=== PATIENT | female | born 1985 | race Asian ===

== ENCOUNTER → 2016-06-12 | Outpatient (CLI) | payer OTHER, MEDICAID ==
[~2016-06-12] MED LIST: PREN-115 PO
--- OUTSIDE RECORDS SUMMARY | 2016-06-12 09:36 | XMS REPORT ---
Author Author KENRICK STEEL Organization [employer] Address Unknown Phone Unavailable Care Team Providers Care Equity Director Name Role Phone KENRICK STEEL CP Unavailable Allergies, Adverse Reactions, Alerts Substance Reaction Event Type N.K.D.A. Info Not Available Non Drug Allergy Problems Problem Type Condition Code Onset Dates Condition Status Assessment Vaginal candidiasis B37.3 Active Assessment Routine health maintenance Z00.00 Active Assessment Family history of hypertension Z82.49 Active Problem Family history of hypertension Z82.49 Active Problem Vaginal candidiasis B37.3 Active Problem Routine health maintenance Z00.00 Active Problem Encounter for screening for malignant neoplasm of cervix Z12.4 Active Problem Screen for STD (sexually transmitted disease) Z11.3 Active Problem Encounter for contraceptive management, unspecified Z30.9 Active Problem Encounter for well woman exam with routine gynecological exam Z01.419 Active Medications Medication Code System Code Instructions Start Date End Date Status Dosage Sprintec 28 [facility] [address]-96 0.25-35 MG-MCG Orally Once a day 1 tablet Diflucan [facility] [address]-31 150 MG Orally Once a day Dec 05, 2015 Dec 07, 2015 1 tablet today and repeat in 4 days Procedures Procedure Coding System Code Date ASSAY THYROID STIM HORMONE CPT-4 16290 Dec 05, 2015 GLYCATED HEMOGLOBIN TEST CPT-4 76987 Dec 05, 2015 Office Visit, Est Pt., Level 3 CPT-4 18712 Dec 05, 2015 LIPID PANEL CPT-4 31369 Dec 05, 2015 COMPLETE CBC W/AUTO DIFF WBC CPT-4 93388 Dec 05, 2015 VENIPUNCT, ROUTINE* CPT-4 36378 Dec 05, 2015 COMPREHEN METABOLIC PANEL CPT-4 45679 Dec 05, 2015 Vital Signs Date/Time: Dec 05, 2015 Cardiac Monitoring Heart Rate 60 bpm Weight 119.8 lbs Height 62.5 in BMI 21.56 Index Blood Pressure Diastolic 62 mmHg Blood Pressure Systolic 108 mmHg Results No Known Results Summary Purpose [employer] Submission
--- NOTE | 2016-06-12 18:04 | Diagnostic Imaging Report ---
OB ultrasound. INDICATION: Late care. There are no prior studies available for comparison. There is a single live fetus in transverse presentation. heart motion is noted and a rate of 139 bpm is recorded. There are no abnormalities identified. The growth parameters are fairly uniform. The growth parameters are as follows: BPD: 4.51, 19 weeks 5 days. Head circumference: 16.09, 19 weeks 0 days. Abdominal circumference: 13.54, 19 weeks 0 days. Femur length: 2.75, 18 weeks 3 days. Estimated weight is 256 g +/- 37 g. LMP percentile is 40%. Sonographic EDC is 11/05/2016. LMP EDC is 11/07/2016. The placenta is posterior and there is no previa. The amniotic fluid volume is within normal limits. The cervix is measured and is estimated to be 4.1 cm. IMPRESSION: 1. There is single live fetus of approximately 19 weeks 1 day gestation +/- 1.5 weeks. The EDC is November 05, 2016. 2. There are no abnormalities identified. 3. The growth parameters are fairly uniform. Dictated by: Dictated on workstation # [id number]
== END ==
LOC: RAD 09:33
PROVIDERS: ATTEND Family Medicine
DX: Z34.82 Encounter for supervision of other normal pregnancy, second trimester (principal); Z3A.19 19 weeks gestation of pregnancy
CPT/HCPCS: 76805

== ENCOUNTER 2016-10-31 05:58 | Inpatient (IN) | payer OTHER, MEDICAID ==
[~2016-10-31] VITALS: Ht 157.5 cm; Wt 66.1 kg
[2016-10-31] VITALS (58 sets, daily range): BP systolic 102–155; BP diastolic 50–96
[2016-10-31] MEDS ORDERED: D5 LR IV SOLUTION 1,000 ML IV SCH (06:04)
[2016-10-31] MEDS ORDERED: MINERAL OIL CONCENTRATE 99.9% 15 ML UDC TOP PRN (06:15)
[2016-10-31 06:31] LABS: BASOPHILS % (AUTO) 0 % (0-10); EOSINOPHILS # (AUTO) 0.1 10^3/uL (0.0-0.3); EOSINOPHILS % (AUTO) 1 % (0-10); LYMPHOCYTES # (AUTO) 1.4 X 10^3 (1.0-4.0); LYMPHOCYTES % (AUTO) 17 % (12-44); MEAN CORPUSCULAR HEMOGLOBIN 28 PG (25-34); MEAN CORPUSCULAR HGB CONC 32 G/DL (32-36); MEAN CORPUSCULAR VOLUME 86 FL (80-99); MEAN PLATELET VOLUME 8.8 FL (7.4-10.4); MONOCYTES % (AUTO) 12 % (0-12); NEUTROPHILS # (AUTO) 5.8 X 10^3 (1.8-7.8); NEUTROPHILS % (AUTO) 70 % (42-75); PLATELET COUNT 258 10^3/uL (130-400); RED BLOOD COUNT 3.56 10^6/uL (4.35-5.85); RED CELL DISTRIBUTION WIDTH 12.9 % (10.0-14.5); WHITE BLOOD COUNT 8.3 10^3/uL (4.3-11.0)
[2016-10-31] MEDS ORDERED: OXYTOCIN/NORMAL SALINE 500 ML IV SCH ×2 (07:34→14:07)
[2016-10-31] MEDS ORDERED: SUFENTA 0.6MCG/ML BUPIVA 0.125 100 ML ONE (08:15)
--- NOTE | 2016-10-31 08:22 | History & Physical-OB ---
OB - Chief Complaint & HPI Date/Time Date of Admission: Date of Admission: Oct 31, 2016 at 5:59 am Time Seen by Provider: 08:18 Chief Complaint/History OB-Reason for Admission/Chief: Induction of Labor Hx : 3 Hx Para: 2 Expected Date of Delivery: Nov 07, 2016 Gestational Age in Weeks: 39 Gestational Age in Days: 0 History of Labs B+, antibody neg, RI, GC/Chlamydia neg. HIV/HepB/RPR NR. Glucola normal. GBS neg. Allergies and Home Medications Allergies Coded Allergies: No Known Drug Allergies (Unverified , 11/10/12) Home Medications Vit #108/Iron/Fa 1 Each Tablet, 1 EACH PO DAILY, (Reported) OB - History Hx of Present Care: Yes Ultrasounds: Normal mid trimester US Obstetrical Complications: None Medical Complications: None Information Induced Hypertension: No Maternal Gestational Diabetes: No Hemorrhage: No Obstetrical History Hx : 3 Hx Para: 2 Hx # Term Pregnancies: 2 Hx # Pregnancies: 0 Number of Living Children: 2 Hx Termination: No Hx Multiple Gestation: No Hx Ectopic : No Hx Stillbirth: No Hx Complication: No Hx Induced Hypertens: No Hx Maternal Gestational Diabet: No Hx Hemorrhage: No Delivery History Hx Dystocia: No Hx Forceps Assisted Delivery: No Hx Vacuum Extraction Assisted: No Hx Placenta Abnormality: No Hx Distress: No Hx Large For Gestational Age I: Yes Hx Small for Gestational Age I: No Hx Section: No Hx Vaginal Delivery Post C-Sec: No Hx Blood Disorders: No Adverse Rxn to Tranfusion: No Patient Past Medical History PMHx: None Social History/Family History HIV/AIDS: No Recent Infectious Disease Expo: No Sexually Transmitted Disease: No Alcohol Use: Denies Use Recreational Drug Use: No Smoking Cessation: Never smoker Immunizations Tetanus Booster (TDap): Less than 5yrs Rubella: immune RPR/VDRL: Negative GBS Status: Negative HBsAG: Negative OB - Admission Exam Physical Exam Date Seen by Provider: Oct 31, 2016 Time Seen by Provider: 08:20 Vitals: Vital Signs 10/31/16 06:03 Temp 98.0 Pulse 71 Resp 18 B/P (MAP) 127/64 HEENT: NCAT Abdomen: Non tender Extremities: Normal Cervical Dilatation: 5cm Effacement: Other (40) Station: -3 Membranes: Intact Heart Rate: 130's Accelerations: Accelerations Present Decelerations: No Decelerations Short Term Variability: Present Machinist Class B Variability: Average (6-25) Contractions on Admission: None Lopez Scoring Tool (Modified) Dilation (cm): 3-4cm (2) Effacement (%): 31-51% (1) Descent/Station: -3 (0) Cervix Consistency: Soft (2) Cervix Position: Anterior (2) Add 1 point for: Each previous vaginal delivery (1) Lopez Score: 9 Labs Laboratory Tests Test 10/31/16 06:15 Range/Units White Blood Count 8.3 4.3-11.0 10^3/uL Red Blood Count 3.56 L 4.35-5.85 10^6/uL Hemoglobin 9.9 L 11.5-16.0 G/DL Hematocrit 31 L 35-52 % Mean Corpuscular Volume 86 80-99 FL Mean Corpuscular Hemoglobin 28 25-34 PG Mean Corpuscular Hemoglobin Concent 32 32-36 G/DL Red Cell Distribution Width 12.9 10.0-14.5 % Platelet Count 258 130-400 10^3/uL Mean Platelet Volume 8.8 7.4-10.4 FL Neutrophils (%) (Auto) 70 42-75 % Lymphocytes (%) (Auto) 17 12-44 % Monocytes (%) (Auto) 12 0-12 % Eosinophils (%) (Auto) 1 0-10 % Basophils (%) (Auto) 0 0-10 % Neutrophils # (Auto) 5.8 1.8-7.8 X 10^3 Lymphocytes # (Auto) 1.4 1.0-4.0 X 10^3 Monocytes # (Auto) 1.0 0.0-1.0 X 10^3 Eosinophils # (Auto) 0.1 0.0-0.3 10^3/uL Basophils # (Auto) 0.0 0.0-0.1 10^3/uL OB - Assessment/Plan/Diagnosis Assessment Assessment: induction of labor Plan Plan: Induction Induction Method: per Pitocin Protocol Copy Copies To 1: SANDRA PHILIP MD, BETHANY N MD Oct 31, 2016 8:21 am
[2016-10-31] MEDS ORDERED: BUPIVACAINE 0.25% 30 ML (SENSORCAINE) VIAL ONE (08:28)
[2016-10-31] MEDS ORDERED: fentaNYL INJECTION 100 MCG/2 ML AMP ONE (08:28)
[2016-10-31] MEDS ORDERED: LACTATED RINGERS 1,000 ML IV SCH (10:04)
[2016-10-31] MEDS ORDERED: diphenhydrAMINE 50 MG/ML INJ (BENADRYL) IV PRN (10:15)
[2016-10-31] MEDS ORDERED: NALOXONE 0.4 MG/ML 1 ML (NARCAN) VIAL IV PRN ×2 (10:15)
[2016-10-31] MEDS ORDERED: EPIDURAL (SUFENTA 0.6MCG/ML BUPIVA 0.125%) 100 ML BAG EPI PRN (10:15)
[2016-10-31] MEDS ORDERED: ONDANSETRON 4 MG/2 ML (SDV) Z0FRAN IV PRN (10:15)
[2016-10-31] MEDS ORDERED: METOCLOPRAMIDE INJ 10 MG/2 ML (REGLAN) IV PRN (10:15)
[2016-10-31] MEDS ORDERED: BUPIVACAINE SPINAL 0.75% (SENSORCAINE) 2 ML AMP ONE (10:58)
[2016-10-31] MEDS ORDERED: LIDOCAINE/EPI 1%-1:200,000 (XYLOCAINE) 30 ML VIAL ONE (11:41)
--- NOTE | 2016-10-31 12:48 | OB Labor & Delivery Record ---
Vag Delivery Note Vag Delivery Note Date of Delivery: 10/31/16 Preoperative Diagnosis: Lexii Engel is a 31 /Para 3 / 2, Gestational Age (wks)39with 0d Postoperative Diagnosis: Same Surgeon: SANDRA PHILIP Dietitian Therapeutic: Uma Silva, MS3 Anesthesia: Epidural Delivery Type: Spontaneous vaginal Findings: Viable female , apgars 8/9, weight pending Lacerations: right periurethral abrasion Intact placenta with 3 vessel cord. No nuchal cord, body cord or shoulder dystocia Estimated Blood Loss: 350 ml Complications: None Condition: Stable Description of Procedure: The patient is a G3 now P3 who presented for IOL. She was admitted and informed consent was obtained. Her labor course was unremarkable. She progressed to complete dilatation and began to push. She was then set up for delivery. The 's head was delivered atraumatically in the JESSI position. The shoulders and remainder of the infant's body were then delivered without difficulty. Upon delivery, the infant cried immediately and was placed on maternal abdomen. After a brief delay the cord was doubly clamped and cut and the was handed off to the pediatric staff. An intact placenta with 3-vessel cord delivered via Elvis and there was found to be minimal bleeding.~ Vigorous fundal massage was performed and the fundus was found to be firm. IV oxytocin was given. Examination of the vagina and perineum revealed a right periurethral abrasion, hemostatic not requiring repair. Sponge, instrument and needle counts were correct. Mom and baby were both in stable condition in the labor suite. Vitals - Labs Vital Signs - I&O Vital Signs Date Time Temp Pulse Resp B/P (MAP) Pulse Ox O2 Delivery O2 Flow Rate FiO2 10/31/16 09:43 68 18 119/61 100 Room Air 10/31/16 09:35 68 18 110/70 Room Air 10/31/16 09:31 75 18 118/87 100 Room Air 10/31/16 09:28 67 18 127/64 100 Room Air 10/31/16 09:25 57 18 122/64 100 Room Air 10/31/16 09:22 65 18 127/65 100 Room Air 10/31/16 09:19 71 18 119/57 Room Air 10/31/16 09:16 77 18 126/67 100 Room Air 10/31/16 09:13 78 18 131/75 Room Air 10/31/16 09:10 73 18 127/74 Room Air 10/31/16 09:07 76 18 133/63 100 Room Air 10/31/16 09:04 82 18 155/82 Room Air 10/31/16 09:01 90 18 150/85 100 Room Air 10/31/16 08:58 92 18 140/81 100 Room Air 10/31/16 08:55 81 18 140/81 100 Room Air 10/31/16 08:52 74 18 135/80 100 Room Air 10/31/16 08:49 78 18 137/81 Room Air 10/31/16 08:46 85 18 130/79 100 Room Air 10/31/16 08:44 68 18 124/80 10/31/16 08:36 76 18 120/76 10/31/16 08:22 68 18 115/74 10/31/16 08:05 69 18 131/78 10/31/16 07:52 78 18 116/69 10/31/16 07:23 98.2 71 18 119/73 10/31/16 06:03 98.0 71 18 127/64 Labs Laboratory Tests 10/31/16 06:15: White Blood Count 8.3, Red Blood Count 3.56L, Hemoglobin 9.9L, Hematocrit 31L, Mean Corpuscular Volume 86, Mean Corpuscular Hemoglobin 28, Mean Corpuscular Hemoglobin Concent 32, Red Cell Distribution Width 12.9, Platelet Count 258, Mean Platelet Volume 8.8, Neutrophils (%) (Auto) 70, Lymphocytes (%) (Auto) 17, Monocytes (%) (Auto) 12, Eosinophils (%) (Auto) 1, Basophils (%) (Auto) 0, Neutrophils # (Auto) 5.8, Lymphocytes # (Auto) 1.4, Monocytes # (Auto) 1.0, Eosinophils # (Auto) 0.1, Basophils # (Auto) 0.0 SANDRA PHILIP MD Oct 31, 2016 12:48 pm
[2016-10-31] MEDS ORDERED: CATHETER FLUSH 10 ML SYR IV SCH ×2 (14:00→22:00)
[2016-10-31] MEDS ORDERED: IBUPROFEN 600 MG (MOTRIN) TAB PO ONE (14:04)
[2016-10-31] MEDS: IBUPROFEN 600 MG (MOTRIN) TAB PO SCH (14:11)
[2016-10-31] MEDS ORDERED: BENZOCAINE/MENTHOL (DERMOPLAST) 56 ML CAN TP PRN (14:15)
[2016-10-31] MEDS ORDERED: WITCH HAZEL(TUCKS) 40 EA JAR TOP PRN (14:15)
[2016-11-01] MEDS: IBUPROFEN 600 MG (MOTRIN) TAB PO SCH ×2 (00:14→06:21)
[2016-11-01 00:15] VITALS: BP 121/73
[2016-11-01 04:35] VITALS: BP 102/60
[2016-11-01 06:43] LABS: BASOPHILS % (AUTO) 0 % (0-10); EOSINOPHILS % (AUTO) 0 % (0-10); LYMPHOCYTES # (AUTO) 1.7 X 10^3 (1.0-4.0); LYMPHOCYTES % (AUTO) 12 % (12-44); MEAN CORPUSCULAR HEMOGLOBIN 28 PG (25-34); MEAN CORPUSCULAR HGB CONC 32 G/DL (32-36); MEAN CORPUSCULAR VOLUME 87 FL (80-99); MEAN PLATELET VOLUME 8.6 FL (7.4-10.4); MONOCYTES # (AUTO) 1.3 X 10^3 (0.0-1.0); MONOCYTES % (AUTO) 9 % (0-12); NEUTROPHILS # (AUTO) 10.8 X 10^3 (1.8-7.8); NEUTROPHILS % (AUTO) 78 % (42-75); PLATELET COUNT 238 10^3/uL (130-400); RED BLOOD COUNT 3.23 10^6/uL (4.35-5.85); RED CELL DISTRIBUTION WIDTH 12.7 % (10.0-14.5); WHITE BLOOD COUNT 13.8 10^3/uL (4.3-11.0)
[2016-11-01] MEDS ORDERED: PRENATAL VITAMIN 1 EA TAB PO SCH (07:00)
[2016-11-01 08:12] VITALS: BP 105/64
[2016-11-01] MEDS ORDERED: IBUP-1773 PO (08:32)
[2016-11-01] MEDS ORDERED: FERR-74 PO (08:32)
--- NOTE | 2016-11-01 08:33 | Discharge Instructions ---
Discharge Inst-Women's Serv Depart Medications New, Converted or Re-Newed RX: Transmitted to Pharmacy New Medications: Ferrous Sulfate (Ferrous Sulfate) 325 Mg Tablet 325 MG PO DAILY, #30 TAB 0 Refills Ibuprofen (Ibuprofen) 600 Mg Tablet 600 MG PO Q6H PRN for PAIN-MODERATE, #60 TAB 0 Refills Continued Medications: Vit #108/Iron/Fa ( One Tablet) 1 Each Tablet 1 EACH PO DAILY Follow Up/Instructions Goal/Follow Up: Follow up with Dr. Benito in 6 weeks for visit. Activity Activity: Activity as Tolerated (avoid strenuous activity x 6 weeks) Driving Instructions: You May Drive NO SMOKING: NO SMOKING Nothing Inside Vagina: No Douching, No [place], No Tampons Diet Discharge Diet: No Restrictions Symptoms to Report to : Swelling Increased, Fever Over 101 Degrees F, Pain/ Pressure in Chest, Heart Beat Irreg/Pounding, Vaginal Bleeding Increase, Cramps in Feet or Legs, Vaginal Discharge Foul, Dizziness/Fainting, Shortness of Breath For Any Problems or Questions: Contact Your Physician Copies To 1: SANDRA BENITO MD, BETHANY N MD Nov 01, 2016 8:33 am
[2016-11-01] MEDS ORDERED: FERROUS SULF 325 MG (IRON) TAB PO SCH (09:00)
[2016-11-01 11:59] VITALS: BP 97/50
[2016-11-01] MEDS ORDERED: IBUPROFEN 600 MG (MOTRIN) TAB PO SCH (12:00)
--- NOTE | 2016-11-01 12:52 | Anesthesia-Regional Post-Op ---
Regional Patient Condition Mental Status: Alert, Oriented x3 Circulation: Same as Pre-Op Headache: Present Sensation: Full Recovery Motor Block: Absent Post Op Complications Complications None Follow Up Care/Instructions Patient Instructions None needed. Anesthesia/Patient Condition Follow up regarding PDPH. D/C home per [facility] Criteria: ARLYN Munroe CRNA Nov 01, 2016 12:52
--- NOTE | 2016-11-01 14:19 | Anesthesia-Procedure Note ---
Procedure Start/Stop Time Date of Procedure: Nov 01, 2016 Start Time: 13:42 Preprocedural Diagnosis: possible PDPH Stop Time: 14:03 Procedures/Interventions Blood Patch Procedure explained to patient, verbal consent received. Pt c/o stiff neck and headache while standing upright. No apparent distress or symptoms noted during assessment. Pt wishes to proceed with epidural blood patch. Positioned sitting on bedside, prepped and draped in a sterile fashion. L3-4 interspace identified. Skin localized with 22G needle with 2mL of 1% Lidocaine. 18g tuohy advanced to 4cm at epidural space easily x 1 attempt. Negative heme, aspiration, or parasthesia. Sterile blood draw via right antecubital space with 25g butterfly catheter. Approximately 20ml of blood injected into epidural space with no event or complaints per patient. Encouraged patient to lie supine x 1hour, increase fluid intake, and to follow up with any further symptoms. HUMA GARRETT CRNA Nov 01, 2016 14:19
== END 2016-11-01 18:05 | disposition home or self-care (01) | DRG 775 ==
LOC: LDRP 05:59 → ENPENDDIS 11-01 13:30
PROVIDERS: ADMIT Family Medicine; ATTEND Family Medicine
PROC: 10E0XZZ Delivery of Products of Conception, External Approach (ICD-10-PCS; principal; 2016-10-31)
PROC: 3E033GC Introduction of Other Therapeutic Substance into Peripheral Vein, Percutaneous Approach (ICD-10-PCS; 2016-10-31)
PROC: 3E0S3GC Introduction of Other Therapeutic Substance into Epidural Space, Percutaneous Approach (ICD-10-PCS; 2016-11-01)
DX: O29.43 Spinal and epidural anesthesia induced headache during pregnancy, third trimester (principal); Z37.0 Single live birth; Z3A.39 39 weeks gestation of pregnancy
CPT/HCPCS: 36415; 85025; 86850; 86900; 86901

== ENCOUNTER 2016-11-04 10:33 | Emergency (ER) | payer MEDICAID, OTHER ==
[~2016-11-04] VITALS: Ht 157.5 cm; Wt 63.5 kg
[~2016-11-04 10:33] MED LIST changes: +FERR-74 PO; +IBUP-1773 PO
[2016-11-04] MEDS ORDERED: fentaNYL INJECTION 100 MCG/2 ML AMP IVP STA ×2 (12:10→14:20)
[2016-11-04] MEDS ORDERED: KETOROLAC 30 MG/ML VIAL IVP STA (12:10)
[2016-11-04] MEDS ORDERED: NS IV 1000 ML 1,000 ML IV ONE (12:10)
--- NOTE | 2016-11-04 12:20 | ED Headache ---
General Chief Complaint: Head/Cervical Problems Stated Complaint: STIFF NECK,HEADACHE Nursing Triage Note: PT REPORTS SHE HAD EPIDURAL X 2 FOR DELIVERY ON TUESDAY 10/31 AND SHE REPORTS PARRISH SINCE 11/01/16. PT REPORTS BLOOD PATCH WAS DONE WHILE SHE WAS STILL IN HOSPITAL WITH NO IMPROVEMENT. Nursing Sepsis Screen: No Definite Risk Source: patient Exam Limitations: no limitations History of Present Illness Time seen by provider: 12:10 Initial Comments Here with report of headache that has been going on for the last 4 days. She reports that she had an epidural that didn't really work well and then afterwards had a blood patch for the headache. Since she has had persistent headache. This is worse when sitting up and better with lying down. She states that her hearing becomes muffled when sitting up. She is status post spontaneous vaginal delivery on 10/31/16. Denies nausea or vomiting. She denies fever. She is breast-feeding. Timing/Duration: other (4 days) Severity/Quality: moderate, pressure Location: global Associated Symptoms: No confusion, No facial pain, No fever/chills, No loss of consciousness, No nausea/vomiting, No seizures, No stiff neck, No weakness Allergies and Home Medications Allergies Coded Allergies: No Known Drug Allergies (Unverified , 11/10/12) Home Medications Ferrous Sulfate 325 Mg Tablet, 325 MG PO DAILY, #30 Ref 0 Prescribed by: SANDRA PHILIP on 11/01/16 0832 Ibuprofen 600 Mg Tablet, 600 MG PO Q6H PRN for PAIN-MODERATE, #60 Ref 0 Prescribed by: SANDRA PHILIP on 11/01/16 0832 Vit #108/Iron/Fa 1 Each Tablet, 1 EACH PO DAILY, (Reported) Constitutional: see HPI Eyes: No Symptoms Reported Ears, Nose, Mouth, Throat: no symptoms reported Respiratory: no symptoms reported Cardiovascular: no symptoms reported Gastrointestinal: no symptoms reported Genitourinary: no symptoms reported Skin: no symptoms reported Psychiatric/Neurological: See HPI, Headache All Other Systems Reviewed Negative Unless Noted: Yes Past Gvumecj-Atfrqi-Ntmunc Hx Patient Social History Alcohol Use: Denies Use Recreational Drug Use: No Smoking Status: Never a Smoker 2nd Hand Smoke Exposure: No Recent Foreign Travel: No Contact w/Someone Who Travel: No Recent Infectious Disease Expo: No Recent Hopitalizations: No Immunizations Up To Date Tetanus Booster (TDap): Less than 5yrs PED Vaccines UTD: No Seasonal Allergies Seasonal Allergies: No Surgeries HX Surgeries: No Respiratory Hx Respiratory Disorders: No Cardiovascular Hx Cardiac Disorders: No Neurological Hx Neurological Disorders: No Reproductive System Hx Reproductive Disorders: No Sexually Transmitted Disease: No HIV/AIDS: No Female Reproductive Disorders: Denies Genitourinary Hx Genitourinary Disorders: No Gastrointestinal Hx Gastrointestinal Disorders: No Gastrointestinal Disorders: Hemorrhoids Musculoskeletal Hx Musculoskeletal Disorders: No Endocrine Hx Endocrine Disorders: No HEENT HX ENT Disorders: No Loss of Vision: Denies Hearing Impairment: Denies Cancer Hx Cancer: No Psychosocial Hx Psychiatric Problems: No Integumentary HX Skin/Integumentary Disorder: No Blood Transfusions Hx Blood Disorders: No Adverse Reaction to a Blood Tr: No (N/a) Reviewed Nursing Assessment Reviewed/Agree w Nursing PMH: Yes Family Medical History Significant Family History: No Pertinent Family Hx Family Medial History: FH: rheumatic heart disease G8 SISTER Hypertension 19 FATHER Physical Exam Vital Signs Vital Sign - Last 12Hours 11/04/16 11:10 Temp 96.9 Pulse 66 Resp 16 B/P (MAP) 140/84 Pulse Ox 99 O2 Delivery Room Air Capillary Refill : Less Than 3 Seconds General Appearance: WD/WN, mild distress (headache) HEENT: PERRL/EOMI, TMs normal, pharynx normal Neck: full range of motion, supple Cardiovascular: regular rate, rhythm, no murmur Respiratory: lungs clear, normal breath sounds Gastrointestinal: non tender, soft Back: normal inspection, no CVA tenderness, no vertebral tenderness Extremities: non-tender, normal inspection, no pedal edema, no calf tenderness Psychiatric: alert, oriented x 3 Crainal Nerves: normal hearing, normal speech, PERRL Coordination/Gait: normal gait Motor/Sensory: no motor deficit, no sensory deficit Skin: normal color, warm/dry Progress/Results/Core Measures Results/Orders Lab Results Laboratory Tests Test 11/04/16 12:27 Range/Units White Blood Count 7.4 4.3-11.0 10^3/uL Red Blood Count 3.66 L 4.35-5.85 10^6/uL Hemoglobin 10.1 L 11.5-16.0 G/DL Hematocrit 32 L 35-52 % Mean Corpuscular Volume 86 80-99 FL Mean Corpuscular Hemoglobin 28 25-34 PG Mean Corpuscular Hemoglobin Concent 32 32-36 G/DL Red Cell Distribution Width 12.7 10.0-14.5 % Platelet Count 284 130-400 10^3/uL Mean Platelet Volume 8.4 7.4-10.4 FL Neutrophils (%) (Auto) 78 H 42-75 % Lymphocytes (%) (Auto) 13 12-44 % Monocytes (%) (Auto) 7 0-12 % Eosinophils (%) (Auto) 2 0-10 % Basophils (%) (Auto) 0 0-10 % Neutrophils # (Auto) 5.7 1.8-7.8 X 10^3 Lymphocytes # (Auto) 1.0 1.0-4.0 X 10^3 Monocytes # (Auto) 0.5 0.0-1.0 X 10^3 Eosinophils # (Auto) 0.1 0.0-0.3 10^3/uL Basophils # (Auto) 0.0 0.0-0.1 10^3/uL Sodium Level 138 135-145 MMOL/L Potassium Level 3.6 3.6-5.0 MMOL/L Chloride Level 109 H 98-107 MMOL/L Carbon Dioxide Level 20 L 21-32 MMOL/L Anion Gap 9 5-14 MMOL/L Blood Urea Nitrogen 10 7-18 MG/DL Creatinine 0.59 L 0.60-1.30 MG/DL Estimat Glomerular Filtration Rate > 60 BUN/Creatinine Ratio 17 Glucose Level 83 70-105 MG/DL Calcium Level 8.5 8.5-10.1 MG/DL Total Bilirubin 0.3 0.1-1.0 MG/DL Aspartate Amino Transf (AST/SGOT) 18 5-34 U/L Alanine Aminotransferase (ALT/SGPT) 18 0-55 U/L Alkaline Phosphatase 144 H 40-136 U/L C-Reactive Protein High Sensitivity 1.03 H 0.00-0.50 MG/DL Total Protein 6.5 6.4-8.2 GM/DL Albumin 3.2 3.2-4.5 GM/DL My Orders Orders - EDWIN WALKER MD Cbc With Automated Diff (11/04/16 12:10) Comprehensive Metabolic Panel (11/04/16 12:10) Hs C Reactive Protein (11/04/16 12:10) Saline Lock/Iv-Start (11/04/16 12:10) Fentanyl Injection (Sublimaze Injection (11/04/16 12:10) Ketorolac Injection (Toradol Injection) (11/04/16 12:10) Ns Iv 1000 Ml (Sodium Chloride 0.9%) (11/04/16 12:10) Fentanyl Injection (Sublimaze Injection (11/04/16 14:20) General/Regular (11/04/16 Dinner) Medications Given in ED Current Medications Medications Dose Ordered Sig/Mikel Route Start Time Stop Time Status Last Admin Dose Admin Sodium Chloride 1,000 ml @ 0 mls/hr Q0M ONCE IV 11/04/16 12:10 11/04/16 12:13 DC 11/04/16 12:31 0 MLS/HR Vital Signs/I&O Vital Sign - Last 12Hours 11/04/16 11:10 Temp 96.9 Pulse 66 Resp 16 B/P (MAP) 140/84 Pulse Ox 99 O2 Delivery Room Air Blood Pressure Mean: 102 Progress Note : Progress Note Seen and evaluated. IV, labs, normal saline 1 L bolus, fentanyl 50 g IV and Toradol 30 mg IV ordered. Monitor patient. This did improve her pain. 1415: Patient has return of headache. I did discuss the case with the on-call anesthesia crew. They will see her. I did discuss the case with Dr. Philip related to meds and breast-feeding. Okay for fentanyl and Toradol. Monitor patient. We did discuss the case with anesthesia. They will do the blood patch. 1800: Blood patch is complete and patient does feel better. She did receive discharge instructions from anesthesia. They will follow up with her later tonight. Discharged home with return precautions. Patient verbalize understanding instructions and agreement with plan. Departure Impression Impression: Primary Impression: Spinal puncture headache Disposition: 01 HOME, SELF-CARE Condition: Improved Departure-Patient Inst. Decision time for Depature: 18:04 Referrals: SANDRA PHILIP MD (PCP/Family) Primary Care Physician Patient Instructions: Headache, Adult (DC) Add. Discharge Instructions: All discharge instructions reviewed with patient and/or family. Voiced understanding. Drink plenty of fluids. Follow directions as given by anesthesia. Return for worse pain, fever, vomiting, vision or balance problems, weakness or other concerns as needed. Continue follow-up with your doctor as previously scheduled. EDWIN WALKER MD Nov 04, 2016 12:20
[2016-11-04 12:32] LABS: BASOPHILS % (AUTO) 0 % (0-10); EOSINOPHILS # (AUTO) 0.1 10^3/uL (0.0-0.3); EOSINOPHILS % (AUTO) 2 % (0-10); LYMPHOCYTES % (AUTO) 13 % (12-44); MEAN CORPUSCULAR HEMOGLOBIN 28 PG (25-34); MEAN CORPUSCULAR HGB CONC 32 G/DL (32-36); MEAN CORPUSCULAR VOLUME 86 FL (80-99); MEAN PLATELET VOLUME 8.4 FL (7.4-10.4); MONOCYTES # (AUTO) 0.5 X 10^3 (0.0-1.0); MONOCYTES % (AUTO) 7 % (0-12); NEUTROPHILS # (AUTO) 5.7 X 10^3 (1.8-7.8); NEUTROPHILS % (AUTO) 78 % (42-75); PLATELET COUNT 284 10^3/uL (130-400); RED BLOOD COUNT 3.66 10^6/uL (4.35-5.85); RED CELL DISTRIBUTION WIDTH 12.7 % (10.0-14.5); WHITE BLOOD COUNT 7.4 10^3/uL (4.3-11.0)
[2016-11-04 12:52] LABS: ALANINE AMINOTRANSFERASE 18 U/L (0-55); ALBUMIN 3.2 GM/DL (3.2-4.5); ANION GAP 9 MMOL/L (5-14); ASPARTATE AMINO TRANSFERASE 18 U/L (5-34); BILIRUBIN,TOTAL 0.3 MG/DL (0.1-1.0); BLOOD UREA NITROGEN 10 MG/DL (7-18); BUN/CREATININE RATIO 17; CALCIUM 8.5 MG/DL (8.5-10.1); CARBON DIOXIDE 20 MMOL/L (21-32); CHLORIDE 109 MMOL/L (98-107); CREATININE SERUM 0.59 MG/DL (0.60-1.30); GFR ESTIMATED > 60; GLUCOSE 83 MG/DL (70-105); POTASSIUM 3.6 MMOL/L (3.6-5.0); SODIUM 138 MMOL/L (135-145); TOTAL PROTEIN 6.5 GM/DL (6.4-8.2); hs C REACTIVE PROTEIN 1.03 MG/DL (0.00-0.50)
[2016-11-04 18:11] VITALS: BP 135/79
--- NOTE | 2016-11-04 18:55 | Progress Note-Standard ---
Standard Progress Note Progress Notes/Assess & Plan Time Seen by Provider: 15:40 Progress/Assessment & Plan 11/04/16 1540 -1730: To ED 9 for evaluation of probable PDPH. I have not previously encountered this patient, but I did speak to Tennille Hernandez CRNA prior to talking with the patient and she provided the recent history of accidental dural puncture during epidural placement last 10/31/16 with an epidural blood patch placed on the following day, 11/01/16. Patient is lying in bed with head elevated 45 degrees and lights off when I entered the room. Her is at her side. She is a bit vague when it comes to explaining her symptoms; however, she states she has a headache and or pressure in her neck and base of her skull. She reports this started soon after delivery and that she never got much relief after the blood patch was placed on 11/01. At the present time, the patient states she does not have a headache, even sitting up; however, she has received IV analgesic recently. Prior to coming to the ED, the patient does state that the pain in her neck and base of skull would be relieved when lying supine and would return when sitting up, and that it was "unbearable." I presented the patient with the option to wait for the headache to go away on its own, which could take up to 2 weeks, and I also discussed the option of repeating the epidural blood patch. After answering all of their questions, the patient agreed to another epidural blood patch, thus her consent was obtained. Platelet count was checked to be > 100,000 prior to the procedure. The patient was placed in a sitting position and her nurse, Tamiko assisted me in drawing her blood. Location of the epidural space was not easy, and bone and or unfamiliar spaces were encountered. Due to her history, and being 5'2 and 130 pounds, I proceeded cautiously in finding the space. After 20 minutes, I was able to obtain great [place] at L4-L5, just slightly below where previous sticks had been from last week, finding the space at 5 cm. Tamiko had simultaneously been trying to draw blood, but after two attempts, she was unable to draw any blood. Laboratory was called and Delisa Shell came to assist. On his first attempt, he was able to draw 3 cc of blood from the patient 's right hand and I injected that using sterile procedure via the Tuohy very easily. The patient tolerated that well. On the 2nd or 3rd attempt, he was able to draw 20 cc of blood using sterile procedure from the patient's left AC space , and I was able to inject 14cc of her blood very easily via the Tuohy making sure to use sterile technique, before she began complaining of pressure in her lower back. At that time, I stopped injecting and pulled the Tuohy out and placed a small bandaid over the site. Initially, the patient felt like she couldn't move her back, but after assisting her to lie down and helping her gradually reposition, she noted the pressure in her lower to mid back had dissipated, and she started to smile. I sat with the patient for the next 30 minutes, gradually noting that she was more talkative and could move all of her extremities. She sat up by herself to drink a Coke that we obtained for her. She noted that she did not feel that pain and pressure in her neck and base of skull any longer. She felt like her upper back was stiff and sore though. I explained that her back in general may be sore over the next couple of days, as she has gone through labor, had multiple sticks in the past 5 days, and she had 20 cc autologous blood injected on 11/01/16 and a total of 17cc autologous blood injected today. I visited with the patient and her regarding post care instructions including no bending, straining, or heavy lifting for the next 24- 48 hours. I provided a parallel explanation of the blood patch acting like a scab, and anything that would disrupt that scab, could cause the headache to return. I stressed the need for increased fluids, including caffeine. The patient and her were very attentive and pleasant. I obtained her phone number and assured them I would be checking in with her later this evening and again tomorrow. They know to report back to the ED if she has any worsening of symptoms. We will continue to follow her progress. ADELE CORBETT CRNA Nov 04, 2016 18:55
== END 2016-11-04 18:11 | disposition home or self-care (01) ==
LOC: EDUNIT# 10:33 → ER 10:35
DX: O99.355 Diseases of the nervous system complicating the puerperium (principal); G97.1 Other reaction to spinal and lumbar puncture
CPT/HCPCS: 36415; 80053; 85025; 86141; 96361; 96374; 96375; 96376

== ENCOUNTER 2023-02-12 05:35 | Inpatient (IN) | payer MEDICAID, OTHER ==
[~2023-02-12] VITALS: Ht 157 cm; Wt 71.1 kg
[2023-02-12] VITALS (34 sets, daily range): BP systolic 105–144; BP diastolic 57–83
[~2023-02-12 05:35] MED LIST changes: -FERR-74 PO; +FERR325T18 PO
[2023-02-12] MEDS ORDERED: LACTATED RINGERS 1,000 ML 500 ML IV PRN (06:00)
[2023-02-12] MEDS ORDERED: OXYTOCIN DRIP PRE-MIX 500 ML IV SCH ×2 (06:00→13:45)
[2023-02-12] MEDS ORDERED: D5 LR 1,000 ML IV SOLN 1,000 ML IV SCH (06:00)
[2023-02-12] MEDS ORDERED: CATHETER FLUSH 10 ML SYR IV SCH ×2 (06:00→14:00)
[2023-02-12] MEDS ORDERED: MINERAL OIL 30 ML UDC TOP PRN (06:00)
[2023-02-12 06:24] LABS: BASOPHILS % (AUTO) 0 % (0-10); EOSINOPHILS # (AUTO) 0.1 10^3/uL (0.0-0.3); EOSINOPHILS % (AUTO) 1 % (0-10); HEMATOCRIT 33 % (35-52); HEMOGLOBIN 11.1 g/dL (11.5-16.0); LYMPHOCYTES # (AUTO) 1.5 10^3/uL (1.0-4.0); LYMPHOCYTES % (AUTO) 21 % (12-44); MEAN CORPUSCULAR HEMOGLOBIN 30 pg (25-34); MEAN CORPUSCULAR HGB CONC 34 g/dL (32-36); MEAN CORPUSCULAR VOLUME 89 fL (80-99); MEAN PLATELET VOLUME 8.8 fL (9.0-12.2); MONOCYTES # (AUTO) 0.6 10^3/uL (0.0-1.0); MONOCYTES % (AUTO) 8 % (0-12); NEUTROPHILS % (AUTO) 69 % (42-75); PLATELET COUNT 251 10^3/uL (130-400); WHITE BLOOD COUNT 7.1 10^3/uL (4.3-11.0)
--- NOTE | 2023-02-12 06:48 | History & Physical-OB ---
OB - Chief Complaint & HPI Date/Time Date of Admission: Date of Admission: Feb 12, 2023 at 05:35 Date seen by a Provider: Feb 12, 2023 Time Seen by a Provider: 08:35 Chief Complaint/History Hx : 5 Hx Para: 4 Expected Date of Delivery: Feb 17, 2023 Gestational Age in Weeks: 39 Gestational Age in Days: 2 History of Labs B+, RI, HIV/HepB/HepC/RPR NR. GC/chlamydia neg. GBS neg. Allergies and Home Medications Allergies Coded Allergies: No Known Drug Allergies (Unverified , 11/10/12) Patient Home Medication List Home Medication List Reviewed: Yes Vit #108/Iron/Fa ( One Tablet) 1 Each Tablet, 1 EACH PO DAILY, (Reported) Entered as Reported by: GALINA FARLEY on 11/10/12610 Last Action: Reviewed Discontinued Medications Ferrous Sulfate (Ferrous Sulfate) 325 Mg Tablet, 325 MG PO DAILY Prescribed by: SANDRA PHILIP on 11/01/16831 Last Action: Discontinued Ibuprofen (Ibuprofen) 600 Mg Tablet, 600 MG PO Q6H PRN for PAIN-MODERATE Prescribed by: SANDRA PHILIP on 11/01/16831 Last Action: Discontinued OB - History Hx of Present Ultrasounds: Normal mid trimester US Obstetrical Complications: None Medical Complications: None Information Induced Hypertension: No Maternal Gestational Diabetes: No Hemorrhage: No Obstetrical History Hx : 5 Hx Para: 4 Hx # Term Pregnancies: 4 Hx # Pregnancies: 0 Number of Living Children: 4 Hx Termination: No Hx Multiple Gestation: No Hx Ectopic : No Hx Stillbirth: No Hx Complication: No Hx Induced Hypertens: No Hx Maternal Gestational Diabet: No Hx Hemorrhage: No Delivery History Hx Dystocia: No Hx Forceps Assisted Delivery: No Hx Vacuum Extraction Assisted: No Hx Placenta Abnormality: No Hx Distress: No Hx Large For Gestational Age I: No Hx Small for Gestational Age I: No Hx Section: No Hx Vaginal Delivery Post C-Sec: No Hx Blood Disorders: No Adverse Rxn to Tranfusion: No (N/a) Risk Variables Obstetrical Risk Variables: Not POA Anemia, Not POA Asthma, Not POA Autoimmune Disease, Not POA Bariatric Surgery, Not POA Bleeding Disorder, Not POA BMI >= 40, Not POA Cardiac Disease, Not POA Economic Housing Instabil, Not POA Gastrointestinal Disease, Not POA Gestational Diabetes, Not POA HIV, Not POA Hypertension, Not POA Nursing Home Anticoagulant U, Not POA Mental Health Disorder, Not POA Multiple , Not POA Neuromuscular Disease, Not POA Obstetrical VTE, Not POA Other Preeclampsia, Not POA Placenta Previa, Not POA Placental Abruption, Not POA Placenta Accreta Spectrum, Not POA Preexisting Diabetes, Not POA , Not POA Previous , Not POA Pulmonary Hypertension, Not POA Renal Disease, Not POA Severe Preeclampsia, Not POA Substance Abuse, Not POA Thyrotoxicosis Patient Past Medical History PMHx: None Social History/Family History Alcohol Use: Denies Use Smoking Cessation: Never smoker 2nd Hand Smoke Exposure: No Immunizations Influenza Vaccine Up-to-Date: No; Not Current Hepatitis A: Yes Hepatitis B: Yes Tetanus Booster (TDap): Less than 5yrs Rubella: immune RPR/VDRL: Negative GBS Status: Negative HBsAG: Negative OB - Admission Exam Physical Exam Vitals: Vital Signs 02/12/23 06:27 Temp 37.2 Pulse 86 Resp 16 Pulse Ox 97 O2 Delivery Room Air HEENT: NCAT Abdomen: Non tender Extremities: Normal Cervical Dilatation: 5cm Effacement: 25% Station: -3 Membranes: Ruptured (AROM at time of exam) Amniotic Fluid: Clear Heart Rate: 140's Accelerations: Accelerations Present Decelerations: No Decelerations Short Term Variability: Present Nursing Home Variability: Average (6-25) Lopez Scoring Tool (Modified) Dilation (cm): 3-4cm (2) Effacement (%): 0-30% (0) Descent/Station: -3 (0) Cervix Consistency: Soft (2) Cervix Position: Posterior (0) Add 1 point for: Each previous vaginal delivery (1) (4) Lopez Score: 7 Labs Laboratory Tests Test 02/12/23 05:55 Range/Units White Blood Count 7.1 4.3-11.0 10^3/uL Red Blood Count 3.67 L 3.80-5.11 10^6/uL Hemoglobin 11.1 L 11.5-16.0 g/dL Hematocrit 33 L 35-52 % Mean Corpuscular Volume 89 80-99 fL Mean Corpuscular Hemoglobin 30 25-34 pg Mean Corpuscular Hemoglobin Concent 34 32-36 g/dL Red Cell Distribution Width 13.0 10.0-14.5 % Platelet Count 251 130-400 10^3/uL Mean Platelet Volume 8.8 L 9.0-12.2 fL Immature Granulocyte % (Auto) 1 % Neutrophils (%) (Auto) 69 42-75 % Lymphocytes (%) (Auto) 21 12-44 % Monocytes (%) (Auto) 8 0-12 % Eosinophils (%) (Auto) 1 0-10 % Basophils (%) (Auto) 0 0-10 % Neutrophils # (Auto) 5.0 1.8-7.8 10^3/uL Lymphocytes # (Auto) 1.5 1.0-4.0 10^3/uL Monocytes # (Auto) 0.6 0.0-1.0 10^3/uL Eosinophils # (Auto) 0.1 0.0-0.3 10^3/uL Basophils # (Auto) 0.0 0.0-0.1 10^3/uL Immature Granulocyte # (Auto) 0.0 0.0-0.1 10^3/uL OB - Assessment/Plan/Diagnosis Assessment Admission Dx Term intrauterine at 39w2d Induction of labor Admission Status: Inpatient Order (span 2 midnights) Reason for Inpatient Admission: Labor, delivery and course Plan Plan: Induction Problems: (1) Encounter for planned induction of labor Assessment & Plan: AROM done at time of exam with clear fluid return. Oxytocin per protocol. SANDRA PHILIP MD Feb 12, 2023 06:48
[2023-02-12] MEDS ORDERED: LIDOCAINE 2% w/EPI 1:200,000 20 ML VIAL ONE (13:13)
[2023-02-12] MEDS ORDERED: BENZOCAINE/MENTHOL (DERMOPLAST) 56 ML CAN TP PRN (13:45)
[2023-02-12] MEDS ORDERED: WITCH HAZEL(TUCKS) 40 EA JAR TOP PRN (13:45)
--- NOTE | 2023-02-12 13:46 | OB Labor & Delivery Record ---
HUGH GUPTA MD, RESIDENT 02/12/23 1346: Vag Delivery Note Vag Delivery Note Date of Delivery: 02/12/23 Preoperative Diagnosis: Lexii Engel is a (37 /Para 5 / 4,Gestation al Age (wks)39 presenting for IOL. Postoperative Diagnosis: Same Attending Surgeon/Physician: Sandra Philip MD Resident Physician: Dr. Hugh Gupta MD Anesthesia: none Delivery Type: Findings: Viable female , apgars 9/9, weight 7lb 15oz Lacerations: none Intact placenta with 3 vessel cord. No nuchal cord, body cord or shoulder dys tocia Estimated Blood Loss: 50 ml Complications: None Condition: Stable Description of Procedure: The patient is a 37 year old female who presented for IOL. She was admitted and informed consent was obtained. Her labor course was uncomplicated. She progressed to complete dilatation and began to push. She was then set up for delivery. The 's head was delivered atraumatically in the left occiput anterior position. The shoulders and remainder of the infant's body were then delivered without difficulty. Upon delivery, the infant was vigorous and placed on maternal chest and the mouth and nares were bulb suctioned. After a delay cord was doubly clamped and cut and the remained on maternal chest. An intact placenta with 3-vessel cord delivered via Elvis and there was found to be minimal bleeding.~ Vigorous fundal massage was perform ed and the fundus was found to be firm. IV oxytocin was given. Examination of the vagina and perineum did not reveal any lacerations. Sponge, instrument and needle counts were correct. Mom and baby were both in stable condition in the labor suite. Vitals - Labs Vital Signs - I&O Vital Signs Date Time Temp Pulse Resp B/P (MAP) Pulse Ox O2 Delivery O2 Flow Rate FiO2 02/12/23 11:45 75 18 128/74 (92) Room Air 02/12/23 11:30 61 18 129/72 (91) Room Air 02/12/23 11:15 67 18 135/74 (94) Room Air 02/12/23 11:00 75 18 124/66 (85) Room Air 02/12/23 10:45 75 18 125/65 (85) Room Air 02/12/23 10:30 75 18 123/69 (87) Room Air 02/12/23 10:15 78 18 136/74 (94) Room Air 02/12/23 10:00 75 18 144/80 (101) Room Air 02/12/23 09:45 75 18 114/67 (83) Room Air 02/12/23 09:30 78 18 121/69 (86) Room Air 02/12/23 09:15 75 18 121/72 (88) Room Air 02/12/23 09:00 68 18 122/74 (90) 98 Room Air 02/12/23 08:00 71 18 115/70 (85) Room Air 02/12/23 06:27 37.2 86 16 97 Room Air 02/12/23 06:15 86 123/77 (92) 97 Room Air Labs Laboratory Tests 02/12/23 05:55: White Blood Count 7.1, Red Blood Count 3.67L, Hemoglobin 11.1L, Hematocrit 33L, Mean Corpuscular Volume 89, Mean Corpuscular Hemoglobin 30, Mean Corpuscular Hemoglobin Concent 34, Red Cell Distribution Width 13.0, Platelet Count 251, Mean Platelet Volume 8.8L, Immature Granulocyte % (Auto) 1, Neutrophils (%) (Auto) 69, Lymphocytes (%) (Auto) 21, Monocytes (%) (Auto) 8, Eosinophils (%) (Auto) 1, Basophils (%) (Auto) 0, Neutrophils # (Auto) 5.0, Lymphocytes # (Auto) 1.5, Monocytes # (Auto) 0.6, Eosinophils # (Auto) 0.1, Basophils # (Auto) 0.0, Immature Granulocyte # (Auto) 0.0, Syphilis Total Antibody Negative SANDRA PHILIP MD 02/12/23 1430: Supervisory-Addendum Brief Supervisory Addendum I was present for the entire procedure performed by the resident and agree with the documentation. HUGH GUPTA MD, RESIDENT Feb 12, 2023 13:46 SANDRA PHILIP MD Feb 12, 2023 14:30
[2023-02-12] MEDS ORDERED: IBUP-844 PO (14:39)
[2023-02-12] MEDS: IBUPROFEN 600 MG TABLET PO PRN ×2 (15:28→21:15)
[2023-02-12] MEDS: DOCUSATE SODIUM 100 MG CAPSULE PO SCH (21:15)
[2023-02-13 01:27] VITALS: BP 121/73
[2023-02-13] MEDS: IBUPROFEN 600 MG TABLET PO PRN ×2 (01:28→09:10)
[2023-02-13 05:10] VITALS: BP 116/70
[2023-02-13 06:24] LABS: BASOPHILS % (AUTO) 0 % (0-10); EOSINOPHILS # (AUTO) 0.1 10^3/uL (0.0-0.3); EOSINOPHILS % (AUTO) 1 % (0-10); HEMATOCRIT 30 % (35-52); LYMPHOCYTES # (AUTO) 1.5 10^3/uL (1.0-4.0); LYMPHOCYTES % (AUTO) 15 % (12-44); MEAN CORPUSCULAR HEMOGLOBIN 29 pg (25-34); MEAN CORPUSCULAR HGB CONC 33 g/dL (32-36); MEAN CORPUSCULAR VOLUME 89 fL (80-99); MEAN PLATELET VOLUME 8.6 fL (9.0-12.2); MONOCYTES # (AUTO) 0.9 10^3/uL (0.0-1.0); MONOCYTES % (AUTO) 9 % (0-12); NEUTROPHILS # (AUTO) 7.8 10^3/uL (1.8-7.8); NEUTROPHILS % (AUTO) 75 % (42-75); PLATELET COUNT 223 10^3/uL (130-400); WHITE BLOOD COUNT 10.4 10^3/uL (4.3-11.0)
[2023-02-13] MEDS ORDERED: FERR325T18 PO (06:48)
[2023-02-13] MEDS ORDERED: FERROUS SULFATE 325 MG (IRON) TABLET PO SCH (07:00)
[2023-02-13 09:09] VITALS: BP 126/69
[2023-02-13] MEDS: DOCUSATE SODIUM 100 MG CAPSULE PO SCH (09:10)
--- NOTE | 2023-02-13 12:36 | Postpartum Progress Note ---
HUGH GAYTAN MD, RESIDENT 02/13/23 1236: Note Note Day #1 Subjective: Patient is without complaints. Ambulating, voiding. Tolerating a regular diet without nausea or vomiting. Normal lochia. Pain is well controlled with oral pain medications. . Objective: Physical Exam: General - Alert and oriented, no apparent distress Abdomen - Soft, appropriately tender to palpation, non-distended, fundus firm at umbilicus Extremities - no edema, negative Karina's bilaterally Assessment: 37yo post- day # 1, status post uncomplicated spontaneous vaginal delivery. Recovering well, hemodynamically stable Plan: Routine care. Encourage breast feeding. Encourage ambulation. Ferrous sulfate supplementation. Plan for discharge 02/13 vs 02/14 pending baby's bilirubin Vitals - Labs Vital Signs - I&O Vital Signs Date Time Temp Pulse Resp B/P (MAP) Pulse Ox O2 Delivery O2 Flow Rate FiO2 02/13/23 09:09 36.6 60 18 126/69 (88) 100 Room Air 02/13/23 05:10 36.4 57 16 116/70 (85) 99 Room Air 02/13/23 01:27 36.7 56 18 121/73 (89) 99 Room Air 02/12/23 21:15 35.8 56 18 105/58 (74) 98 Room Air 02/12/23 19:12 36.4 64 18 114/59 (77) 98 Room Air 02/12/23 16:00 37.3 62 18 130/69 (89) Room Air 02/12/23 15:39 59 18 136/68 (90) Room Air 02/12/23 15:24 62 20 120/63 (82) Room Air 02/12/23 15:09 65 20 122/61 (81) Room Air 02/12/23 14:54 74 20 128/61 (83) Room Air 02/12/23 14:39 64 20 125/61 (82) Room Air 02/12/23 14:24 69 20 124/61 (82) Room Air 02/12/23 14:09 64 20 141/65 (90) Room Air 02/12/23 13:55 81 20 131/83 (99) Room Air 02/12/23 13:39 37.2 70 20 114/57 (76) Room Air 02/12/23 13:25 89 20 113/69 (84) Room Air 02/12/23 13:15 69 18 141/70 (93) Room Air 02/12/23 13:00 58 18 137/66 (89) Room Air 02/12/23 12:45 61 18 134/63 (86) Room Air I & O 02/13/23 07:00 Intake Total 500 ml Balance 500 ml Labs Laboratory Tests 02/13/23 06:16: White Blood Count 10.4, Red Blood Count 3.40L, Hemoglobin 10.0L, Hematocrit 30L, Mean Corpuscular Volume 89, Mean Corpuscular Hemoglobin 29, Mean Corpuscular Hemoglobin Concent 33, Red Cell Distribution Width 13.0, Platelet Count 223, Mean Platelet Volume 8.6L, Immature Granulocyte % (Auto) 0, Neutrophils (%) (Auto) 75, Lymphocytes (%) (Auto) 15, Monocytes (%) (Auto) 9, Eosinophils (%) (Auto) 1, Basophils (%) (Auto) 0, Neutrophils # (Auto) 7.8, Lymphocytes # (Auto) 1.5, Monocytes # (Auto) 0.9, Eosinophils # (Auto) 0.1, Basophils # (Auto) 0.0, Immature Granulocyte # (Auto) 0.0 SANDRA PHILIP MD 02/13/23 1605: Supervisory-Addendum Brief Supervisory Addendum I personally performed the pizano portions of the visit, discussed case with resident and concur with resident documentation of history, physical exam, assessment and treatment plan unless otherwise noted. HUGH GAYTAN MD, RESIDENT Feb 13, 2023 12:36 SANDRA PHILIP MD Feb 13, 2023 16:05
[2023-02-13 13:00] VITALS: BP 121/71
--- NOTE | 2023-02-13 15:08 | Discharge Summary ---
HUGH GAYTAN MD, RESIDENT 02/13/23 1508: Discharge Summary Hospital Course Problems Reviewed?: Yes Problems/Diagnosis: (1) Encounter for planned induction of labor Status: Resolved Resolution Date/Time: 02/13/23 @ 15:05 Assessment & Plan: Presented for IOL at 39w2d. (2) Spontaneous vaginal delivery Status: Resolved Resolution Date/Time: 02/13/23 @ 15:05 Assessment & Plan: Spontaneous and uncomplicated vaginal delivery not requiring any repairs. (3) anemia Status: Acute Assessment & Plan: Will send home on oral iron. Hospital Course Date of Admission: Feb 12, 2023 at 05:35 Admission Diagnosis : Family Physician/Provider: Sandra Benito MD Date of Discharge: 02/13/23 Discharge Diagnosis: Spontaneous vaginal delivery Hospital Course: Patient is a 37yo who presented at 39w2d for IOL resulting in an uncomplicated . course was unremarkable. Will discharge home on oral iron due to mild anemia. Labs and Pending Lab Test: Laboratory Tests 02/13/23 06:16: White Blood Count 10.4, Red Blood Count 3.40L, Hemoglobin 10.0L, Hematocrit 30L, Mean Corpuscular Volume 89, Mean Corpuscular Hemoglobin 29, Mean Corpuscular Hemoglobin Concent 33, Red Cell Distribution Width 13.0, Platelet Count 223, Mean Platelet Volume 8.6L, Immature Granulocyte % (Auto) 0, Neutrophils (%) (Auto) 75, Lymphocytes (%) (Auto) 15, Monocytes (%) (Auto) 9, Eosinophils (%) ( Auto) 1, Basophils (%) (Auto) 0, Neutrophils # (Auto) 7.8, Lymphocytes # (Auto) 1.5, Monocytes # (Auto) 0.9, Eosinophils # (Auto) 0.1, Basophils # (Auto) 0.0, Immature Granulocyte # (Auto) 0.0 Home Meds Active Ferrous Sulfate 325 Mg (65 Mg Iron) Tablet 325 Mg PO Q48H Ibu (Ibuprofen) 600 Mg Tablet 600 Mg PO Q6HR PRN Reported One Tablet ( Vit #108/Iron/Fa) 1 Each Tablet 1 Each PO DAILY Activity: Activity as Tolerated Discharge Diet: No Restrictions Symptoms to Report to : Bleeding Excessive, Pain Increased, Fever Over 101 Degrees F, Pain/Pressure in Chest, Heart Beat Irreg/Pounding For Any Problems or Questions: Contact Your Physician Discharge Physical Examination Allergies: Coded Allergies: No Known Drug Allergies (Unverified , 11/10/12) Vitals & I&Os Vital Signs Date Time Temp Pulse Resp B/P (MAP) Pulse Ox O2 Delivery O2 Flow Rate FiO2 02/13/23 09:09 36.6 60 18 126/69 (88) 100 Room Air General Appearance: No Apparent Distress, WD/WN HEENT: Normal ENT Inspection Respiratory: Chest Non Tender, Lungs Clear, Normal Breath Sounds, No Accessory Muscle Use, No Respiratory Distress Cardiovascular: Regular Rate, Rhythm, No Edema, No Murmur Gastrointestinal: Normal Bowel Sounds, Non Tender, Soft Extremity: No Pedal Edema Skin: Normal Color, Warm/Dry Neurologic/Psychiatric: Alert, Oriented x3 Discharge Summary Date of Admission Feb 12, 2023 at 05:35 Date of Discharge Discharge Date: Feb 13, 2023 Discharge Diagnosis (1) Encounter for planned induction of labor Status: Resolved Assessment & Plan: AROM done at time of exam with clear fluid return. Oxytocin per protocol. SANDRA BENITO MD 02/13/23 1614: Discharge Summary Discharge Physical Examination Allergies: Coded Allergies: No Known Drug Allergies (Unverified , 11/10/12) Supervisory-Addendum Brief Verification & Attestation Participated in pt care: history, MDM, physical Personally performed: exam, history, MDM, supervision of care Care discussed with: other Procedures: n/a I personally performed the pizano portions of the visit, discussed case with resident and concur with resident documentation of history, physical exam, assessment and treatment plan unless otherwise noted. Supervisory-Addendum Brief Supervisory Addendum I personally performed the pizano portions of the visit, discussed case with resident and concur with resident documentation of history, physical exam, assessment and treatment plan unless otherwise noted. HUGH GAYTAN MD, RESIDENT Feb 13, 2023 15:08 SANDRA BENITO MD Feb 13, 2023 16:14
== END 2023-02-13 15:45 | disposition home or self-care (01) | DRG 807 ==
LOC: LDRP 05:35
PROVIDERS: ADMIT Family Medicine; ATTEND Family Medicine
PROC: 10E0XZZ Delivery of Products of Conception, External Approach (ICD-10-PCS; principal; 2023-02-12)
PROC: 10907ZC Drainage of Amniotic Fluid, Therapeutic from Products of Conception, Via Natural or Artificial Opening (ICD-10-PCS; 2023-02-12)
DX: O90.81 Anemia of the puerperium (principal); Z37.0 Single live birth; Z3A.39 39 weeks gestation of pregnancy
CPT/HCPCS: 36415; 85025; 86780; 86850; 86900; 86901